=== PATIENT | female | born 1945 | race Caucasian/White ===

== ENCOUNTER 2020-09-22 10:52 | Observation (INO) ==
--- NOTE | 2020-09-09 12:56 | PAT Medication Instructions ---
Medication Instructions Date of Service September 09, 2020 Home Medications acetaminophen [Tylenol 8 Hour] 650 mg PO Q8H diphenhydramine HCl [Benadryl] 25 mg PO HS PRN diphenhydramine-acetaminophen [Tylenol PM Extra Strength] 1 tab PO HS docusate sodium [Stool Softener] 100 mg PO BID gabapentin 100 mg PO HS PRN insulin aspart U-100 [Novolog U-100 Insulin aspart] 1 sliding scale dose SUBCUT USEASDIRECTD insulin glargine [Lantus Solostar U-100 Insulin] 38 - 48 unit SUBCUT HS labetalol 100 mg PO BID lorazepam 1 - 2 mg PO BID losartan 100 mg PO QAM lovastatin 40 mg PO HS polyethylene glycol 3350 [Miralax] 17 g PO PM sertraline 50 mg PO QAM aspirin [Aspir-81] 81 mg PO QAM hydrocodone-acetaminophen 1 tab PO Q8H PRN DO NOT take the morning of surgery docusate sodium [Stool Softener] 100 mg PO BID insulin aspart U-100 [Novolog U-100 Insulin aspart] 1 sliding scale dose SUBCUT USEASDIRECTD losartan 100 mg PO QAM Take morning of surgery With a small sip of water, OTHERWISE NOTHING TO EAT OR DRINK AFTER MIDNIGHT: acetaminophen [Tylenol 8 Hour] 650 mg PO Q8H (if needed, may be taken up to four hours before surgery) labetalol 100 mg PO BID lorazepam 1 - 2 mg PO BID losartan 100 mg PO QAM sertraline 50 mg PO QAM aspirin [Aspir-81] 81 mg PO QAM (unless otherwise instructed by your surgeon) hydrocodone-acetaminophen 1 tab PO Q8H PRN (if needed, may be taken up to four hours before surgery) Take evening before surgery acetaminophen [Tylenol 8 Hour] 650 mg PO Q8H (if needed) diphenhydramine HCl [Benadryl] 25 mg PO HS PRN (if needed) diphenhydramine-acetaminophen [Tylenol PM Extra Strength] 1 tab PO HS docusate sodium [Stool Softener] 100 mg PO BID gabapentin 100 mg PO HS PRN (if needed) insulin aspart U-100 [Novolog U-100 Insulin aspart] 1 sliding scale dose SUBCUT USE DIRECTD insulin glargine [Lantus Solostar U-100 Insulin] 38 - 48 unit SUBCUT HS labetalol 100 mg PO BID lorazepam 1 - 2 mg PO BID lovastatin 40 mg PO HS polyethylene glycol 3350 [Miralax] 17 g PO PM sertraline 50 mg PO QAM aspirin [Aspir-81] 81 mg PO QAM hydrocodone-acetaminophen 1 tab PO Q8H PRN (if needed) Other Notes If you have any questions please call us at [phone] or [phone] or [phone] or [phone]
--- NOTE | 2020-09-09 13:08 | Anesthesiology Consultation ---
Date of Service September 09, 2020 Assessment & Plan (1) Encounter for pre-operative examination: COVID Status: As of 09/09 assessment, patient denies travel to endemic area, known exposure/sick contacts, or symptoms of COVID19. Patient advised to adhere to social distancing guidelines, wear a mask in public and avoid large crowds or unnecessary travel in the 2 weeks leading up to surgery. Preoperative COVID19 testing to be completed prior to surgery per surgeon's arrangements (09/18). Patient encouraged to be extra cautious/conscientious with COVID precautions between COVID testing and surgery. Patient is NOT vaccinated for COVID. Chart Review Chart Review: Acceptable Risk for Surgery (pending pcp clearance 09/15) and Patient seen in Pre Admission Testing Teaching & Discussion Instructed NPO after midnight before surgery, except medications with 15 cc of water. Medication instructions provided according to the PAT guidelines. History Surgery Operation Date: 09/22/20 12:25 Proposed Procedures p Right Total Knee Arthroplasty - Cesar Connelly DO Height/Weight Height: 5 ft 1 in Weight: 99.5 kg Allergies Allergy/AdvReac Type Severity Reaction Status Date / Time fish derived Allergy Severe TONGUE Verified 09/03/20 09:24 TINGLING honey Allergy Severe Rash and Verified 09/03/20 09:24 SOB iodine Allergy Intermediate HivesFOR Verified 09/03/20 09:24 CT SCAN Tetracyclines Allergy Intermediate Gastrointestinal Verified 09/03/20 09:24 Upset Penicillins Allergy Unknown Unknown- Verified 09/03/20 09:24 pt thinks rash erythromycin base AdvReac Intermediate Gastrointestinal Verified 09/03/20 09:24 Upset PEANUT BUTTER Allergy Severe Rash Uncoded 09/03/20 09:24 Medications Home Medications Medication Instructions Recorded Confirmed Last Taken acetaminophen [Tylenol 8 Hour] 650 mg PO Q8H 11/04/19 09/03/20 Unknown diphenhydramine HCl [Benadryl] 25 mg PO HS PRN 11/04/19 09/03/20 Unknown diphenhydramine-acetaminophen 1 tab PO HS 11/04/19 09/03/20 Unknown [Tylenol PM Extra Strength] docusate sodium [Stool Softener] 100 mg PO BID 11/04/19 09/03/20 Unknown gabapentin 100 mg PO HS PRN 11/04/19 09/03/20 Unknown insulin aspart U-100 [Novolog 1 sliding scale dose SUBCUT 11/04/19 09/03/20 Unknown U-100 Insulin aspart] USEASDIRECTD insulin glargine [Lantus Solostar 38 - 48 unit SUBCUT HS 11/04/19 09/03/20 Unknown U-100 Insulin] labetalol 100 mg PO BID 11/04/19 09/03/20 Unknown lorazepam 1 - 2 mg PO BID 11/04/19 09/03/20 Unknown losartan 100 mg PO QAM 11/04/19 09/03/20 Unknown lovastatin 40 mg PO HS 11/04/19 09/03/20 Unknown polyethylene glycol 3350 [Miralax] 17 g PO PM 11/04/19 09/03/20 Unknown sertraline 50 mg PO QAM 11/04/19 09/03/20 Unknown aspirin [Aspir-81] 81 mg PO QAM 09/03/20 09/03/20 Unknown hydrocodone-acetaminophen 1 tab PO Q8H PRN 09/03/20 09/03/20 Unknown Past Medical History Medical History Anxiety Breast cancer RIGHT SIDE> 1990, METS TO LUNGS AND HIP, HAD CHEMO AND RADIATION 1994 HAD RELAPSE TO LUNGS, CHEMO AGAIN 2002 LEFT BREAST, lumpectomy No current issues Constipation Diabetes mellitus, type 2 IDDM Fatty liver Pt states LFTs well controlled Hearing deficit Wears left sided hearing aids Hyperlipidemia Hypertension Kidney stones No current issues Osteoarthritis SOB (shortness of breath) on exertion NOT ACTIVE Temporomandibular joint disorder LEFT SIDE PAIN ON CHEWING-NO LOCKING Exercise / Class Metabolic Activity III < 4 Walking/Shop/Light housework (Has 4 steps to get into the house but otherwise ambulates with cane on flat surface, denies CP or SOB with ambulation) Past Family History Family History Uncle Family history of diabetes mellitus Grandfather (Maternal) Family history of diabetes mellitus Sister Family history of diabetes mellitus Past Surgical History Surgical History Colon polyp WITH REMOVAL H/O blepharoplasty BILAT History of bilateral tubal ligation History of biopsy LYMPH NODE NECK History of cataract surgery BILAT History of colonoscopy MULTIPLE History of left knee replacement 2010 History of tonsillectomy History of tooth extraction Hx of lumpectomy BILAT WITH LYMPH NODE REMOVAL Nausea and vomiting after administration of anesthetic agent Uterine polyp WITH REMOVAL Past Anesthesia History No Hx of Anesthesia Complications and No Family Hx of Anesthesia Complications History of PONV No Hx of Motion Sickness and History of PONV (single episode) Social History Smoking Status: Never smoker Do You Dip or Chew Tobacco: No Hx Alcohol Use: Yes Alcohol type: other alcohol intake frequency: holidays/special occasions only Hx Substance Use: No Review of Systems Pt denies any recent chest pain, shortness of breath, palpitations, cough, fever, URI, or uncontrolled acid reflux. Physical Exam Vital Signs BP: 119/74 P: 78bpm SPO2: 96% RA T: 98.5 F R: 16 ENMT Mouth: + TMJ abnormality (small ), + dentures (full upper) and + macroglossia; no loose teeth Thyromental Distance: > or= 3.5 Finger Breadths Mallampati Class: III Six teeth remain on bottom, no molars Neck + thick neck and + limited neck extension Respiratory normal respiratory effort, lungs clear to auscultation Cardiovascular RRR, no murmur, no edema Lab Results Anesthesia Preop Results Results Anesthesia Widget: WBC 5.91 K/uL (4.8-10.8) 09/09/20 Hgb 12.7 g/dL (12.0-16.0) 09/09/20 Hct 38.4 % (37-47) 09/09/20 Plt 211 K/uL (130-400) 09/09/20 Na 139 mmol/L (136-145) 09/09/20 K 4.4 mmol/L (3.5-5.1) 09/09/20 Cl 108 mmol/L (98-107) H 09/09/20 CO2 25 mmol/L (21-32) 09/09/20 BUN 19 mg/dl (7-18) H 09/09/20 Creat 1.06 mg/dl (0.6-1.2) 09/09/20 Glucose Level 100 mg/dl (70-99) H 09/09/20 PT 10.5 Seconds (9.0-12.0) 09/09/20 PTT 31.8 Seconds (21.0-31.0) H 09/09/20 INR 1.0 (0.9-1.1) 09/09/20 HA1c 7.1 % (4.5-5.6) H 09/09/20 Urine Color Yellow 09/09/20 Urine Appearance Clear (Clear) 09/09/20 Urine pH 6.0 (4.5-7.5) 09/09/20 Urine Specific [place] 1.019 (1.000-1.030) 09/09/20 Urine Protein Negative (Negative) 09/09/20 Urine Glucose (UA) Negative (Negative) 09/09/20 Urine Ketones Negative (Negative) 09/09/20 Urine Blood Negative (Negative) 09/09/20 Urine Nitrite Negative (Negative) 09/09/20 Urine Bilirubin Negative (Negative) 09/09/20 Urine Urobilinogen Negative (Negative) 09/09/20 Urine Leukocyte Esterase 1+ (Negative) H 09/09/20 Urine WBC (Auto) 5-10 /hpf (0-5) H 09/09/20 Urine RBC (Auto) 5-10 /hpf (0-4) H 09/09/20 Urine Hyaline Casts (Auto) 0 /lpf (0-5) 09/09/20 Urine Epithelial Cells (Auto) 10-20 /lpf (0-5) H 09/09/20 Urine Bacteria (Auto) Negative (Negative) 09/09/20 Blood Type O Positive 09/09/20 Antibody Screen NEGATIVE 09/09/20 Testing Electrocardiogram Date: 11/07/19 Findings: + NSR @ (94bpm) and + RBBB Chest X-Ray Date: 11/07/19 1. No active disease in the chest 2. Lytic focus within the right humeral head versus projectional artifact
--- NOTE | 2020-09-11 18:22 | History & Physical Report ---
Date of Service September 22, 2020 Assessment & Plan (1) Degenerative joint disease of knee, right: I have indicated the patient for right total knee replacement. The risks, benefits and complications of surgery were explained to the patient which include but not limited to infection, acute blood loss, DVT/PE, injury to nerves, vessels, bone, soft tissue, arthrofibrosis, chronic pain, failure of the prosthesis, knee dislocation, leg length discrepancy, need for additional surgery, cardiac and pulmonary events and . The patient wished to proceed with surgery and informed consent was obtained at this time. We will plan for 81mg ASA BID post-operatively for DVT prophylaxis. Upon discharge the patient will be discharged home with home health services. Appropriate clearances by PCP were obtained. History of Present Illness Chief Complaint: Right knee pain/DJD Primary Care Provider: NO PCP The patient is a 75 year old female who presents with complaints of severe right knee pain and DJD. The patient has failed outpatient conservative treatments to this point which included NSAIDs, bracing, corticosteroid injection and a home exercise/walking program. The patient's pain and limited function have progressed to the point where they severely hinder their activities of daily living and they no longer tolerate exercise programs. They are requesting to proceed with total knee replacement surgery. Allergies Allergy/AdvReac Type Severity Reaction Status Date / Time fish derived Allergy Severe TONGUE Verified 09/22/20 11:35 TINGLING honey Allergy Severe Rash and Verified 09/22/20 11:35 SOB iodine Allergy Intermediate HivesFOR Verified 09/22/20 11:35 CT SCAN Tetracyclines Allergy Intermediate Gastrointestinal Verified 09/22/20 11:35 Upset Penicillins Allergy Unknown Unknown- Verified 09/22/20 11:35 pt thinks rash erythromycin base AdvReac Intermediate Gastrointestinal Verified 09/22/20 11:35 Upset PEANUT BUTTER Allergy Severe Rash Uncoded 09/22/20 11:35 Home Medications Medication Instructions Recorded Confirmed Type acetaminophen [Tylenol 8 Hour] 650 mg PO Q8H 11/04/19 09/22/20 History diphenhydramine HCl [Benadryl] 25 mg PO HS PRN 11/04/19 09/22/20 History diphenhydramine-acetaminophen 1 tab PO HS 11/04/19 09/22/20 History [Tylenol PM Extra Strength] docusate sodium [Stool Softener] 100 mg PO BID 11/04/19 09/22/20 History gabapentin 100 mg PO HS PRN 11/04/19 09/22/20 History insulin aspart U-100 [Novolog 1 sliding scale dose SUBCUT 11/04/19 09/22/20 History U-100 Insulin aspart] USEASDIRECTD insulin glargine [Lantus Solostar 38 - 48 unit SUBCUT HS 11/04/19 09/22/20 History U-100 Insulin] labetalol 100 mg PO BID 11/04/19 09/22/20 History lorazepam 1 - 2 mg PO BID 11/04/19 09/22/20 History losartan 100 mg PO QAM 11/04/19 09/22/20 History lovastatin [Altoprev] 40 mg PO HS 11/04/19 09/22/20 History polyethylene glycol 3350 [Miralax] 17 g PO PM 11/04/19 09/22/20 History sertraline [Zoloft] 50 mg PO QAM 11/04/19 09/22/20 History aspirin [Aspir-81] 81 mg PO QAM 09/03/20 09/22/20 History hydrocodone-acetaminophen 1 tab PO Q8H PRN 09/03/20 09/22/20 History Past Med/Surg History Medical History Anxiety Breast cancer RIGHT SIDE> 1990, METS TO LUNGS AND HIP, HAD CHEMO AND RADIATION 1994 HAD RELAPSE TO LUNGS, CHEMO AGAIN 2002 LEFT BREAST, lumpectomy No current issues Constipation Diabetes mellitus, type 2 IDDM Fatty liver Pt states LFTs well controlled Hearing deficit Wears left sided hearing aids Hyperlipidemia Hypertension Kidney stones No current issues Morbid obesity Osteoarthritis SOB (shortness of breath) on exertion NOT ACTIVE Temporomandibular joint disorder LEFT SIDE PAIN ON CHEWING-NO LOCKING Surgical History Colon polyp WITH REMOVAL H/O blepharoplasty BILAT History of bilateral tubal ligation History of biopsy LYMPH NODE NECK History of cataract surgery BILAT History of colonoscopy MULTIPLE History of left knee replacement 2010 History of tonsillectomy History of tooth extraction Hx of lumpectomy BILAT WITH LYMPH NODE REMOVAL Nausea and vomiting after administration of anesthetic agent Uterine polyp WITH REMOVAL Family History Uncle Family history of diabetes mellitus Grandfather (Maternal) Family history of diabetes mellitus Sister Family history of diabetes mellitus Social History Smoking Status: Never smoker Second Hand Exposure: No; Do You Dip or Chew Tobacco: No; Hx Alcohol Use: Yes Alcohol type: other Hx Substance Use: No Preferred Language: Khmer Communication Ability: Effective Vp Of Product Required: No Beliefs That Will Affect Care: None Current Living Situation: Alone current occupational status: retired Other Information That Helps Us Care for You: No Feels Safe at Home: Yes Safety Concerns: Feels Safe At This Time Assistive Devices: Cane, Denture - Upper, Glasses and Hearing Aid - Left Assistive Devices Comment: VELCRO WRAP KNEE PRN Review of Systems Review of Systems: All systems reviewed & are unremarkable except as noted in HPI & below Constitutional: as per Subjective / HPI Physical Exam Physical Exam: RLE NVSI +EHL/FHL/TA/GS SILT grossly, +2 DP pulse, compartments soft NT, limited painful ROM of the knee, 30-90 degrees of flexion, +crepitus. Constitutional: WD/WN, vitals as above Eyes: PERRL, conjunctivae normal, anicteric sclerae ENMT: external ear and nose normal, oropharynx normal Neck: trachea midline, no thyromegaly Respiratory: normal respiratory effort, lungs clear to auscultation Cardiovascular: RRR, no murmur, no edema Gastrointestinal (Abdomen): normal bowel sounds, soft, nontender, no hepatosplenomegaly Musculoskeletal: no cyanosis or clubbing, extremities motor strength 5/5 Skin: no rashes, warm and dry Neurologic: patellar DTR's 2+ bilat, sensation intact Psychiatric: A+Ox3, euthymic affect Lymphatic: no cervical or axillary lymphadenopathy Results & Data Results & Data ([facility]) Diagnostic Findings Multiple views of the knee demonstrates severe tricompartmental DJD with complete loss of the medial joint space. +osteophytes, +sclerosis, +subchondral cysts.
[~2020-09-22 10:52] MED LIST: ACETAMINOPHEN 500 MG TAB PO SCH; BUPIVACAINE 0.5 % 5 MG/1 ML PF 10ML VIAL ONE; CeleBREX 200 MG CAP PO SCH; EPINEPHrine INJ 1 MG/ML AMP ONE; FAMOTIDINE 20 MG TAB PO SCH; LR 15ML/HR IV SCH; METOCLOPRAMIDE HCL 10 MG TABLET PO SCH; ROPIVACAINE 0.5% 5 MG/ML 30 ML VIAL ONE; ROPIVACAINE 0.5% HCL/PF 150 MG, BUPIVACAINE 0.75% MPF 20 ML, EPINEPHrine 30MG/30ML (OR ... INSTIL SCH; TRANEXAMIC ACID 1,000 MG **IV Intra-op IV SCH; TRANEXAMIC ACID 1,000 MG **IV Pre-op IV SCH; dexAMETHasone 4 MG TAB PO SCH
[2020-09-22] MEDS ORDERED: ORTHO JOINT ANESTHETIC ONE (13:40)
[2020-09-22] MEDS ORDERED: MIDAZOLAM HCL 1 MG/ML 2ML VIAL ONE ×2 (14:01→14:52)
[2020-09-22] MEDS ORDERED: fentaNYL citrate 100 MCG/2 ML VIAL ONE (14:01)
[2020-09-22] MEDS ORDERED: PROPOFOL IV EMULSION 10 MG/ML 20 ML VIAL IV ONE ×3 (14:03→16:04)
[2020-09-22] MEDS ORDERED: LIDOCAINE 2% 2 ML VIAL/AMP(20MG/ML) INFIL ONE (14:05)
[2020-09-22] MEDS ORDERED: ONDANSETRON INJ 2 MG/ML 2 ML VIAL ONE (14:07)
[2020-09-22] MEDS ORDERED: ceFAZolin 2000MG 2,000 MG/15 ML SYR IV ONE (14:11)
[2020-09-22] MEDS ORDERED: ceFAZolin 2,000 MG/15 ML IV PUSH IV ONE (14:13)
--- NOTE | 2020-09-22 14:21 | History & Physical Bridge Note ---
Date of Service September 22, 2020 History & Physical Bridge Note I have examined the patient, reviewed the History & Physical and in the interval since the performance of the History & Physical I have noted the following changes of clinical significance: no changes noted
[2020-09-22] MEDS ORDERED: ePHEDrine sulfate 50 MG/ML AMP IV PRN (16:12)
[2020-09-22] MEDS ORDERED: ATROPINE SULFATE 0.1 MG/ML 10ML SYR IV PRN (16:12)
--- NOTE | 2020-09-22 16:15 | Post Operative Brief Note ---
Immediate Post Op Note v1 Date of Surgery September 22, 2020 Pre & Post Diagnosis Operation Date: 09/22/20 14:00 Pre-Op Diagnosis: Osteoarthritis, Right Knee Post-Op Diagnosis: Osteoarthritis, Right Knee I identified the patient and participated in the time-out.: Yes Procedure Operation Date: 09/22/20 14:00 Actual Procedures p Right Total Knee Arthroplasty, Cemented(Right) - Cesar Connelly DO Surgeon Cesar Connelly DO Osteologist Luis A Zavala Estimated Blood Loss 55 Findings Consistent with Post-Op Diagnosis Fluids See anesthesia report Specimens Proximal tibia and distal femur bone fragments Anesthesia Type Spinal MAC Complications none Disposition Disposition: Recovery Room Overlapping Procedure I was present for: the critical portions of procedure. I was immediately available: during the entire case. Back up surgeon: was not required during procedure.
--- NOTE | 2020-09-22 16:17 | Operative Report ---
Post Operative Report Pre & Post Diagnosis Operation Date: 09/22/20 14:00 Pre-Op Diagnosis: Osteoarthritis, Right Knee Post-Op Diagnosis: Osteoarthritis, Right Knee I identified the patient and participated in the time-out.: Yes Procedure Operation Date: 09/22/20 14:00 Actual Procedures p Right Total Knee Arthroplasty, Cemented(Right) - Cesar Connelly DO Surgeon Cesar Connelly DO Line Producer Luis A Zavala Estimated Blood Loss 55 Findings Consistent with Post-Op Diagnosis Specimens Proximal tibia and distal femur bone fragments Anesthesia Type Spinal MAC Complications none Disposition Disposition: Recovery Room Indications The patient is a 75-year-old female presents with long history of severe right knee tricompartmental DJD and failed outpatient conservative treatments including NSAIDs, bracing, injections and home walking/exercise program. The patient's symptoms have progressed to the point where it has been difficult to perform normal activities of daily living. I have indicated the patient for a right total knee arthroplasty, the risks and benefits and complications of the procedure include but are not limited to infection bleeding damage to bone, nerves, vessels, surrounding soft tissue, blood clots, loss of function, leg length discrepancy, dislocation, failure of the components, need for additional surgery and . The patient wished to proceed with surgery at this time and informed consent was obtained. Appropriate clearances were obtained. Description of Procedure COMPONENTS USED: Diane persona knee system: Femur size 7 standard, Tibia size E, Tibial articulating surface 10 CPS, Patella 32 mm Following induction of spinal anesthesia, a tourniquet was applied to the proximal aspect of the thigh and the patient's right leg was prepped and draped in the usual sterile manner. A timeout was performed, patient identified and site ancelmo confirmed. Appropriate pre-operative IV antibiotics were given. The limb was exsanguinated with an Esmarch bandage and tourniquet was inflated to 300 mmHg. A longitudinal midline incision was made over the anterior knee. Subcutaneous tissue was sharply dissected down to fascia. Electrocautery was used for hemostasis. Next a parapatellar arthrotomy was performed. Patella was everted and the knee was flexed. A Hassan retractor was used to expose the synovium above on the anterior aspect of the femur and removed down to bone. Next, the anterior fat pad was removed to aid in visualization. The medial face of the tibia was cleared of soft tissue first with a Bovie and a iverson elevator. This tissue was retracted posteriorly using a blunt Hohmann. Next, the extra-medullary tibial cutting guide was placed to the anterior aspect of the tibia. The tibia resection level was set taking 2mm from the defective tibial condyle. Resection depth was once again confirmed with genesis wing. The medial and lateral collateral ligament was protected with two Hohmann retracto rs. The tibia guide was removed and proximal tibial bone fragment removed utilizing straight osteotome, electrocautery and Joe. Next, the distal femur intramedullary canal was accessed utilizing the step drill. The intramedullary distal femur cutting guide was placed into the canal and pinned into place. The distal femur was cut on the 5 degree setting. Next the cutting guide was removed and the femur was sized. Care was taken to ensure appropriate nailhead setter all rotation and 3 degree holes were drilled. A size 7 4-in-1 cutting block was placed on the distal end of the femur and secured into place with two short headed screws. Two bent Hohmann retractors were placed to protect the medial and lateral collateral ligaments. The oscillating saw was used to cut anterior, posterior, anterior chamfer and posterior chamfer. The four and one cutting block was removed and bone fragments excised. Laminar digital imager was placed laterally and the ACL and PCL were removed followed by the medial meniscus and posterior medial osteophytes. Aquamantys was utilized for any posterior medial bleeders and Orthomix injected into the posterior medial capsule. A laminar digital imager was then placed in the medial compartment and the lateral meniscus and posterior osteophytes were removed. Aquamantys was utilized for any posterior lateral bleeders and Orthomix injected into the posterior lateral capsule. Next, drop teofilo and spacer block were placed with the leg in flexion and extension to assess alignment and flexion/extension gaps. Next, the proximal tibia was assessed and two bent Hohmans were placed medial and lateral to aid in visualization. The appropriate tibia size and rotation was selected and a size E tibial plate was pinned into place with appropriate rotation. Preparation of the tibia was completed utilizing the matching tibial drill and broach. I then turned my attention back to the distal femur in a trial femoral component was impacted into place. Appropriate femoral width was assessed and selected. Next the femur PS box cut guide was placed and cut made with the reciprocal saw and the PS box provisional placed. A trial size 10 PS tibia articular tray was placed and varus-valgus balance assessed in 0 degrees of extension and 30, 60 and 90 degrees of flexion. A final tibial articular surface size 10 CPS was chosen. Assess was gained to the patella and caliper utilized to measure width. The patella reamer was utilized and remaining bone removed with oscillating saw. A size 32 mm patella button was selected and the patella pegs drilled. Trial patella button was placed and tracking was assessed. The knee was found to be well balanced, well aligned with excellent patella tracking. The trials were removed and final components were obtained and assembled. The knee was irrigated copiously with sterile saline solution mixed with bacitracin. Access to the proximal tibia was once again obtained utilizing to the Hohmans and the proximal tibia and distal femur were dried with lap sponges. The final components were cemented into place and all excess cement was removed. A trial tibial articular surface was placed while cemented hardened. Knee stability was once again assessed and the final component inserted. A Betadine soak was performed. After 3 minutes, the knee was once more irrigated with copious sterile saline solution with bacitracin. The knee was injected with the remaining Orthomix which includes a combination of Ropivicaine 0.5% 150mg, Bupivicaine 0.5%/Epinephrine 1:200,000 30ml, Toradol 30mg, Dexamethasone 4mg, Ketamine 10mg, Clonidine 100mcg and NSS 30ml solution. The capsulotomy was closed with #1 Vicryl followed by subcutaneous closure with 2-0 Vicryl suture and a 3-0 V-lock suture. Skin was closed with henri and a sterile dry dressing was applied which included meliton incisional VAC, web roll Ap wrap. Tourniquet was deflated at 91 minutes. The patient tolerated the procedure well and was taken to the PACU in stable condition. Due to the complex nature of the procedure, the entire surgery was performed with the operational assistance of Luis A Zavala PA-C. The assistant hairstylist, under direct supervision, was involved in the actual performance of all aspects of the surgical procedure including patient positioning, hemostasis, tissue retraction, instrument management and wound closure. I attest to the content of the Intraoperative Record and any orders documented therein. Any exceptions are noted below.
--- NOTE | 2020-09-22 17:36 | XRay Report ---
XR knee RT 1 or 2V routine HISTORY: 75 years-old Female Surgical Post Op right knee total joint arthroplasty COMPARISON: None TECHNIQUE: Single AP view of the right knee FINDINGS: Right knee total joint arthroplasty. Skin henri with expected postoperative soft tissue swelling an d deep tissue air. Only one image was submitted for review. IMPRESSION: Right knee total joint arthroplasty with expected postoperative changes. ACT 112: Negative or not required by law. The above report was generated using voice recognition software. It may contain grammatical, syntax o r spelling errors. Electronically signed by: Rene Henderson M.D. 09/22/2020 5:35 PM
--- NOTE | 2020-09-22 17:52 | Anesthesiology Progress Note ---
Date of Service September 22, 2020 Anesthesia Post Procedure Vital Signs Vital Signs: Temp Pulse Resp BP Pulse Ox 09/22/20 17:40 36.5 C 84 16 153/95 H 94 09/22/20 17:30 79 17 153/90 H 94 09/22/20 17:20 81 14 141/83 H 96 09/22/20 17:10 83 19 144/80 H 93 09/22/20 17:00 89 21 139/85 96 09/22/20 16:50 36.2 C L 87 16 118/73 95 09/22/20 16:44 36.2 C L 18 127/78 98 09/22/20 11:44 37.0 C 99 H 18 143/86 H 97 Transfer of Care Handoff Completed per policy Notes Mental Status: alert / awake / arousable Patient Amnestic to Procedure: Yes Nausea / Vomiting: adequately controlled Pain: adequately controlled Airway Patency, RR, SpO2: stable & adequate BP & HR: stable & adequate Hydration State: stable & adequate Anesthetic Complications: no major complications apparent
--- NOTE | 2020-09-22 17:55 | Anesthesiology Progress Note ---
Date of Service September 22, 2020 Anesthesia Post Procedure Vital Signs Vital Signs: Temp Pulse Resp BP Pulse Ox 09/22/20 17:50 36.5 C 79 18 155/91 H 96 09/22/20 17:40 36.5 C 84 16 153/95 H 94 09/22/20 17:30 79 17 153/90 H 94 09/22/20 17:20 81 14 141/83 H 96 09/22/20 17:10 83 19 144/80 H 93 09/22/20 17:00 89 21 139/85 96 09/22/20 16:50 36.2 C L 87 16 118/73 95 09/22/20 16:44 36.2 C L 18 127/78 98 09/22/20 11:44 37.0 C 99 H 18 143/86 H 97 Transfer of Care Handoff Completed per policy Notes Mental Status: alert / awake / arousable Patient Amnestic to Procedure: Yes Nausea / Vomiting: adequately controlled Pain: adequately controlled Airway Patency, RR, SpO2: stable & adequate BP & HR: stable & adequate Hydration State: stable & adequate Neuraxial Anesthesia: was administered and sensory block is resolving Anesthetic Complications: no major complications apparent
[2020-09-22] MEDS ORDERED: HYDROmorphone INJ 0.5 MG/0.5 ML SYR IV PRN (18:58)
[2020-09-22] MEDS ORDERED: ONDANSETRON INJ 2 MG/ML 2 ML VIAL IV PRN (18:58)
[2020-09-22] MEDS ORDERED: bisacodyL 10 MG SUPP PR PRN (18:58)
[2020-09-22] MEDS ORDERED: METOCLOPRAMIDE HCL INJ 5 MG/ML 2 ML VIAL IV PRN (18:58)
[2020-09-22] MEDS ORDERED: GABAPENTIN 100 MG CAP PO PRN (18:58)
[2020-09-22] MEDS ORDERED: NALOXONE HCL 0.4 MG/1 ML VIAL/CARP IV PRN (18:58)
[2020-09-22] MEDS ORDERED: diphenhydrAMINE Capsule 25 MG CAP PO PRN (18:58)
[2020-09-22] MEDS ORDERED: MAGNESIUM HYDROXIDE SUSP 30 ML UDC PO PRN (18:58)
[2020-09-22] MEDS ORDERED: SODIUM CHLORIDE 0.9% 1000ML 1,000 ML IV SCH (18:58)
[2020-09-22] MEDS: [UNRECOGNIZED DRUG - REMARK] SCH ×2 (19:03→19:04)
[2020-09-22] MEDS ORDERED: PHARMACY GLYCEMIC MGMT CONSULT PRN (19:23)
[2020-09-22] MEDS ORDERED: DEXTROSE 50% 50 ML SYRINGE IV PRN (19:30)
[2020-09-22] MEDS ORDERED: GLUCAGON FOR INJ 1 MG VIAL IM PRN (19:30)
[2020-09-22] MEDS ORDERED: GLUCOSE 10 TABS/TUBE PO PRN (19:30)
[2020-09-22] MEDS ORDERED: CARBOHYDRATES FOR HYPOGLYCEMIA PO PRN (19:30)
[2020-09-22] MEDS ORDERED: GLUCOSE 40% GEL 15 GM TUBE PO PRN (19:30)
--- NOTE | 2020-09-22 20:11 | Pharmacy Report ---
Pharmacy Glycemic Short Note 2 - Date of Service September 22, 2020 - Glycemic Short BSG Results (Last 24 hours): 09/22/20 09/22/20 09/22/20 11:25 14:21 16:47 POC Glucose 168 H 155 H 154 H OUTPATIENT ANTIDIABETIC REGIMEN: * Lantus 32 units HS, Novolog SSI * A1c 7.1% 09/09/20 ASSESSMENT: * 75 year old now s/p R TKA - POD 0. Type 2 diabetic managed on insulin at home. Scale listed for basal insulin on med rec, spoke with patient and she reports taking Lantus 32 units at HS time. Has been taking this dosing for over a month. She reports her BSGs had improved and her provider had been decreasing her basal insulin. I updated the med rec to reflect dosing. * Patient received PO dexamethasone, therefore anticipate steroid induced hyperglycemia. Plan to use novolog stress 2/3 dosing for tonight. PLAN FOR INPATIENT GLYCEMIC CONTROL: * Hold outpatient oral diabetes medications * Basal insulin * Lantus 32 units HS * Bolus insulin * NovoLog per scale ACHS or Q6hrs while NPO * Goal Range: Low 110 mg/dL - High 140 mg/dL * Correction Factor: 15 mg/dL/unit * Nutritional / Prandial insulin per carb ratio of 1 unit per 7 grams CHO consumed PLAN FOR DISCHARGE: * tbd
[2020-09-22] MEDS ORDERED: INSULIN GLARGINE SOLOSTAR 100 UNITS/ML 3 ML PEN SC SCH (21:00)
[2020-09-22] MEDS ORDERED: ATIVAN 1MG HOMEPACK PO SCH (21:00)
[2020-09-22] MEDS ORDERED: LORazepam 1 MG TAB PO SCH (21:00)
[2020-09-22] MEDS ORDERED: SENNA 8.6 MG TAB PO SCH (21:00)
[2020-09-22] MEDS ORDERED: LOVASTATIN 20 MG TAB PO SCH (21:00)
[2020-09-22] MEDS: DOCUSATE SODIUM 100 MG CAP PO SCH (21:13)
[2020-09-22] MEDS: LABETALOL HCL 100 MG TAB PO SCH (21:14)
[2020-09-22] MEDS: ACETAMINOPHEN 500 MG TAB PO SCH (21:16)
[2020-09-22] MEDS: ceFAZolin 2000MG 2,000 MG/15 ML SYR IV SCH (21:19)
--- NOTE | 2020-09-22 21:56 | Orthopedic Progress Note ---
Date of Service September 22, 2020 Assessment & Plan (1) Degenerative joint disease of knee, right: s/p Right TKA -ancef x 24 -DVT ppx: SCDs, TEDs, 81mg ASA BID -WBAT RLE -PT/OT -PO XR demonstrates a well aligned well fixed prosthesis without fracture/dislocation -am labs -DC planning Admission and Anticipated Discharge Date Admission Date: September 22, 2020 Subjective Post Operative Progress Note Patient seen sitting up in bed, comfortable, denies complaints, pain well controlled, no acute issues. Review of Systems Review of Systems: All systems reviewed & are unremarkable except as noted in HPI & below Constitutional: as per Subjective / HPI Physical Exam Physical Exam: RLE NVSI +EHL/FHL/TA/GS SILT grossly, +2 DP pulse, compartments soft NT, dressing cdi. Constitutional: WD/WN, vitals as above Results & Data ([facility]) Vital Signs (Past 12 Hours) Vital Signs Temp Pulse Resp BP Pulse Ox 09/22/20 21:45 36.6 C 89 18 149/84 H 94 09/22/20 20:45 35.7 C L 93 H 18 150/85 H 95 09/22/20 19:41 37 C 79 18 146/84 H 95 09/22/20 19:15 36.3 C L 80 18 147/89 H 95 09/22/20 18:15 82 18 154/88 H 96 09/22/20 18:00 79 16 145/87 H 96 09/22/20 17:50 36.5 C 79 18 155/91 H 96 09/22/20 17:40 36.5 C 84 16 153/95 H 94 09/22/20 17:30 79 17 153/90 H 94 09/22/20 17:20 81 14 141/83 H 96 09/22/20 17:10 83 19 144/80 H 93 09/22/20 17:00 89 21 139/85 96 09/22/20 16:50 36.2 C L 87 16 118/73 95 09/22/20 16:44 36.2 C L 18 127/78 98 09/22/20 11:44 37.0 C 99 H 18 143/86 H 97
[2020-09-22] MEDS: INSULIN ASPART 100 UNITS/ML 3 ML PEN SC SCH ×2 (22:06→22:14)
[2020-09-22] MEDS: oxyCODONE HCL IR 5 MG TAB (IMMEDIATE RELEASE) PO PRN (23:44)
[2020-09-23] MEDS ORDERED: INSULIN ASPART 100 UNITS/ML 3 ML PEN SC SCH (02:00)
[2020-09-23] MEDS: ceFAZolin 2000MG 2,000 MG/15 ML SYR IV SCH (05:57)
[2020-09-23] MEDS: ACETAMINOPHEN 500 MG TAB PO SCH ×2 (05:57→14:16)
[2020-09-23 06:34] LABS: Hematocrit (blood only) 33.7 % (37-47); Hemoglobin 10.8 g/dL (12.0-16.0); Mean Corpuscular Hemoglobin 27.1 pg (25-34); Mean Corpuscular Volume 84.5 fL (80-100); Mean Platelet Volume 9.9 fL (7.4-10.4); Platelet Count 198 K/uL (130-400); RDW Coefficient of Variation 13.9 % (11.5-14.5); RDW Standard Deviation 42.8 fL (36.4-46.3); Red Blood Count 3.99 M/uL (4.2-5.4); White Blood Count 11.12 K/uL (4.8-10.8)
[2020-09-23 07:04] LABS: BUN Creatinine Ratio 21.7 (10-20); Calcium 8.3 mg/dl (8.5-10.1); Creatinine Clr Calc Pharmacy 39.3 ml/min; Est GFR (African American) 45.1 ml/min; Est GFR (Non-African American) 38.9 ml/min; Potassium 4.3 mmol/L (3.5-5.1)
--- NOTE | 2020-09-23 07:39 | Orthopedic Progress Note ---
Date of Service September 23, 2020 Assessment & Plan (1) Degenerative joint disease of knee, right: s/p Right TKA POD#1 -ancef x 24 -DVT ppx: SCDs, TEDs, 81mg ASA BID -WBAT RLE -PT/OT -PO XR demonstrates a well aligned well fixed prosthesis without fracture/dislocation -am labs - as above, hgb 10.8 -DC planning - home with HH Admission and Anticipated Discharge Date Admission Date: September 22, 2020 Subjective Post Operative Progress Note Patient seen sitting up in bed, comfortable, denies complaints, pain well controlled, no acute issues. Denies F/C/N/V/SOB/CP. Physical Exam Physical Exam: RLE NVSI +EHL/FHL/TA/GS SILT grossly, +2 DP pulse, compartments soft NT, dressing cdi. Constitutional: WD/WN, vitals as above Eyes: PERRL, conjunctivae normal, anicteric sclerae ENMT: external ear and nose normal, oropharynx normal Neck: trachea midline, no thyromegaly Respiratory: normal respiratory effort, lungs clear to auscultation Cardiovascular: RRR, no murmur, no edema Gastrointestinal (Abdomen): normal bowel sounds, soft, nontender, no hepato splenomegaly Musculoskeletal: no cyanosis or clubbing, extremities motor strength 5/5 Skin: no rashes, warm and dry Neurologic: patellar DTR's 2+ bilat, sensation intact Psychiatric: A+Ox3, euthymic affect Lymphatic: no cervical or axillary lymphadenopathy Results & Data ([facility]) Vital Signs (Past 12 Hours) Vital Signs Temp Pulse Resp BP BP Pulse Ox 09/23/20 07:38 36.3 C L 82 18 144/81 H 96 09/23/20 02:40 37.5 C 83 18 129/74 94 09/22/20 23:00 37.3 C 93 H 18 137/81 93 09/22/20 21:45 36.6 C 89 18 149/84 H 94 09/22/20 20:45 35.7 C L 93 H 18 150/85 H 95 09/22/20 19:41 37 C 79 18 146/84 H 95 Laboratory Results 09/23/20 09/23/20 09/23/20 Range/Units 06:02 06:02 02:28 WBC 11.12 H (4.8-10.8) K/uL RBC 3.99 L (4.2-5.4) M/uL Hgb 10.8 L (12.0-16.0) g/dL Hct 33.7 L (37-47) % MCV 84.5 (80-100) fL MCH 27.1 (25-34) pg MCHC 32.0 (32-36) g/dL RDW Std Deviation 42.8 (36.4-46.3) fL RDW Coeff of Aleena 13.9 (11.5-14.5) % Plt Count 198 (130-400) K/uL MPV 9.9 (7.4-10.4) fL Sodium 139 (136-145) mmol/L Potassium 4.3 (3.5-5.1) mmol/L Chloride 112 H (98-107) mmol/L Carbon Dioxide 23 (21-32) mmol/L Anion Gap 4.0 (3-11) BUN 29 H (7-18) mg/dl Creatinine 1.34 H (0.6-1.2) mg/dl Est Cr Clr Drug Dosing 39.3 ml/min Est GFR ( Amer) 45.1 ml/min Est GFR (Non-Af Amer) 38.9 ml/min BUN/Creatinine Ratio 21.7 H (10-20) Glucose 131 H (70-99) mg/dl POC Glucose 187 H (70-99) mg/dl Calcium 8.3 L (8.5-10.1) mg/dl COVID-19 Eval Order SARS-CoV-2, RNA, NAAT (NEGATIVE) 09/22/20 09/22/20 09/22/20 Range/Units 21:45 16:47 14:21 WBC (4.8-10.8) K/uL RBC (4.2-5.4) M/uL Hgb (12.0-16.0) g/dL Hct (37-47) % MCV (80-100) fL MCH (25-34) pg MCHC (32-36) g/dL RDW Std Deviation (36.4-46.3) fL RDW Coeff of Aleena (11.5-14.5) % Plt Count (130-400) K/uL MPV (7.4-10.4) fL Sodium (136-145) mmol/L Potassium (3.5-5.1) mmol/L Chloride (98-107) mmol/L Carbon Dioxide (21-32) mmol/L Anion Gap (3-11) BUN (7-18) mg/dl Creatinine (0.6-1.2) mg/dl Est Cr Clr Drug Dosing ml/min Est GFR ( Amer) ml/min Est GFR (Non-Af Amer) ml/min BUN/Creatinine Ratio (10-20) Glucose (70-99) mg/dl POC Glucose 259 H 154 H 155 H (70-99) mg/dl Calcium (8.5-10.1) mg/dl COVID-19 Eval Order SARS-CoV-2, RNA, NAAT (NEGATIVE) 09/22/20 09/22/20 09/22/20 Range/Units 11:25 11:08 11:08 WBC (4.8-10.8) K/uL RBC (4.2-5.4) M/uL Hgb (12.0-16.0) g/dL Hct (37-47) % MCV (80-100) fL MCH (25-34) pg MCHC (32-36) g/dL RDW Std Deviation (36.4-46.3) fL RDW Coeff of Aleena (11.5-14.5) % Plt Count (130-400) K/uL MPV (7.4-10.4) fL Sodium (136-145) mmol/L Potassium (3.5-5.1) mmol/L Chloride (98-107) mmol/L Carbon Dioxide (21-32) mmol/L Anion Gap (3-11) BUN (7-18) mg/dl Creatinine (0.6-1.2) mg/dl Est Cr Clr Drug Dosing ml/min Est GFR ( Amer) ml/min Est GFR (Non-Af Amer) ml/min BUN/Creatinine Ratio (10-20) Glucose (70-99) mg/dl POC Glucose 168 H (70-99) mg/dl Calcium (8.5-10.1) mg/dl COVID-19 Eval Order Covid19 [facility]Now [facility] SARS-CoV-2, RNA, NAAT NEGATIVE (NEGATIVE)
[2020-09-23] MEDS ORDERED: LOSARTAN POTASSIUM 50 MG TAB PO SCH (09:00)
[2020-09-23] MEDS ORDERED: MULTIVITAMIN TAB PO SCH (09:00)
[2020-09-23] MEDS ORDERED: LORazepam 1 MG TAB PO SCH (09:00)
[2020-09-23] MEDS ORDERED: SERTRALINE HCL 50 MG TABLET PO SCH (09:00)
[2020-09-23] MEDS ORDERED: ASPIRIN 81 MG ECTAB PO SCH (09:00)
[2020-09-23] MEDS: LABETALOL HCL 100 MG TAB PO SCH (09:13)
[2020-09-23] MEDS: DOCUSATE SODIUM 100 MG CAP PO SCH (09:13)
[2020-09-23] MEDS: INSULIN ASPART 100 UNITS/ML 3 ML PEN SC SCH ×2 (09:16→12:55)
--- NOTE | 2020-09-23 09:41 | Pharmacy Report ---
Pharmacy Glycemic Short Note 2 - Date of Service September 23, 2020 - Glycemic Short BSG Results (Last 24 hours): 09/22/20 09/22/20 09/22/20 11:25 14:21 16:47 Glucose POC Glucose 168 H 155 H 154 H 09/22/20 09/23/20 09/23/20 21:45 02:28 06:02 Glucose 131 H POC Glucose 259 H 187 H 09/23/20 08:09 Glucose POC Glucose 133 H OUTPATIENT ANTIDIABETIC REGIMEN: * Lantus 32 units HS, Novolog SSI * A1c 7.1% 09/09/20 ASSESSMENT: 09/23 * Pt has received 44 units of insulin over the past 24hrs * 32 units of basal with Lantus * 12 units of bolus with NovoLog * BSGs [phone] mg/dl * Hyperglycemic effects of dexamethasone should be wearing off today. Will loosen CF/CR insulin * AM fasting BSG is in goal range - continue with outpatient Lantus dosing 09/22 * 75 year old now s/p R TKA - POD 0. Type 2 diabetic managed on insulin at home. Scale listed for basal insulin on med rec, spoke with patient and she reports taking Lantus 32 units at HS time. Has been taking this dosing for over a month. She reports her BSGs had improved and her provider had been decreasing her basal insulin. I updated the med rec to reflect dosing. * Patient received PO dexamethasone, therefore anticipate steroid induced hyperglycemia. Plan to use novolog stress 2/3 dosing for tonight. PLAN FOR INPATIENT GLYCEMIC CONTROL: * Hold outpatient oral diabetes medications * Basal insulin * Lantus 32 units HS * Bolus insulin * NovoLog per scale ACHS or Q6hrs while NPO * Goal Range: Low 110 mg/dL - High 140 mg/dL * Correction Factor: 25 mg/dL/unit * Nutritional / Prandial insulin per carb ratio of 1 unit per 8 grams CHO consumed PLAN FOR DISCHARGE: * A1c is in goal range for age/co-morbidities. No changes needed to outpatient regimen.
[2020-09-23] MEDS: oxyCODONE HCL IR 5 MG TAB (IMMEDIATE RELEASE) PO PRN ×2 (09:49→14:44)
--- NOTE | 2020-09-23 12:49 | Communication Note ---
Date of Service: September 23, 2020 Progressing well with PT. Pain controlled. Plan for dc to home today.
--- NOTE | 2020-09-23 23:15 | Discharge Summary ---
Date of Service September 23, 2020 Admission HPI Per Admitting Provider The patient is a 75 year old female who presents with complaints of severe right knee pain and DJD. The patient has failed outpatient conservative treatments to this point which included NSAIDs, bracing, corticosteroid injection and a home exercise/walking program. The patient's pain and limited function have progressed to the point where they severely hinder their activities of daily living and they no longer tolerate exercise programs. They are requesting to proceed with total knee replacement surgery. Principal Diagnosis Right total knee replacement Discharge Exam RLE NVSI +EHL/FHL/TA/GS SILT grossly, +2 DP pulse, compartments soft NT, dressing cdi. Constitutional WD/WN, vitals as above Discharge Data Allergies Allergy/AdvReac Type Severity Reaction Status Date / Time fish derived Allergy Severe TONGUE Verified 09/22/20 11:35 TINGLING honey Allergy Severe Rash and Verified 09/22/20 11:35 SOB iodine Allergy Intermediate HivesFOR Verified 09/22/20 11:35 CT SCAN Tetracyclines Allergy Intermediate Gastrointestinal Verified 09/22/20 11:35 Upset Penicillins Allergy Unknown Unknown- Verified 09/22/20 11:35 pt thinks rash erythromycin base AdvReac Intermediate Gastrointestinal Verified 09/22/20 11:35 Upset PEANUT BUTTER Allergy Severe Rash Uncoded 09/22/20 11:35 Procedures Performed Operation Date: 09/22/20 14:00 Actual Procedures p Right Total Knee Arthroplasty, Cemented(Right) - Cesar Connelly DO Ordered Studies 09/22/20 05:00 US - OR guided needle placemen Routine Hospital Course (1) Degenerative joint disease of knee, right: The patient is a 75 -year-old female who presents with long standing history of severe right knee DJD and failed outpatient conservative treatments. The patient's symptoms have progressed to the point where it has been difficult to perform even normal activities of daily living. I indicated the patient for a right total knee arthroplasty, the risks, benefits and complications of the procedure include but not limited to infection, bleeding, damage to bone, nerves, vessels, surrounding soft tissue, may develop blood clots, loss of function, leg length discrepancy, dislocation, failure of the components, loosening of the components, the need for additional surgery and . The patient wished to proceed with surgery at this time and informed consent was obtained. Hospital Course: On 09/22/20 the patient was taken to the operating room, adequate anesthesia administered and underwent a right total knee arthroplasty. The patient tolerated the procedure well and was taken to the PACU in stable condition. Post-operatively the patient was started on a DVT ppx medication and given appropriate IV antibiotics. Consults were placed to physical therapy, occupational therapy and case management. On POD#1, the patient did well overnight and their pain was well controlled. Labs were drawn and the Hgb was 10.8. The patient progressed well with PT. Dressings were changed at this time and the incision was clean, dry and intact. The patients hospital stay was relatively uneventful and they were deemed stable by the orthopedic team and consultants to be discharged home with HH on 09/23/20. Discharge Instructions: Upon discharge the patient may weight bear as tolerates through their operative extremity. They were instructed to keep the incision clean and dry at all times. The patient may shower but should not submerge the incision, avoid bathing, pools and hot tubs. The patient was given a script for pain medication and should take as instructed. The patient was given a script for DVT ppx 81mg ASA BID and should take as directed. The patient was instructed to not drive or travel for long distances until cleared to do so. If the patient develops any symptoms of fevers, chills, nausea, vomiting, increased redness, swelling, pain or drainage from the surgical site, they should notify the office and/or proceed to the nearest emergency room. The patient should follow up in 10-14 days after surgery for their routine post-operative follow-up appointment and should call the office, to confirm the date and time. s/p Right TKA POD#1 -ancef x 24 -DVT ppx: SCDs, TEDs, 81mg ASA BID -WBAT RLE -PT/OT -PO XR demonstrates a well aligned well fixed prosthesis without fracture/dislocation -am labs - as above, hgb 10.8 -DC planning - home with Total Time Total Time Spent Total Time Spent (In Minutes): 30 Discharge Plan Discharge Items Patient Disposition: Home - Home Health Services Reason For Visit: Osteoarthritis, Right Knee Discharge Diagnosis: Right total knee replacement Condition on Discharge: Good Activity: Per Instructions section Lifting: Wait until after follow-up appointment Bathing: Keep incision dry Bathing Comment: No bathing, pools or hot tubs. Sexual Activity: Wait until after follow-up appointment Exercise/Sports: Wait until after follow-up appointment Driving/Machine Use: No driving. Weightbearing: Full weightbearing Non-emergency contact: Primary Care Provider and Surgeon Call non-emergency contact if: you have any medication questions, your symptoms worsen, your pain is not controlled, your pain is worsening, your pain is unusual for you, your pain is concerning for you, you have a fever, your temperature is above 101.5, your wound has increased redness, your wound has increased drainage and your wound pain has increased Follow-up/Referrals: Maribel Romero D.O. [Primary Care Provider] - Diet: Carb Consistent or DM2 Addtl Attending Provider Instructions: ACTIVITY RECOMMENDATIONS: SELF CARE INSTRUCTIONS AFTER TOTAL KNEE REPLACEMENT A. You may need to continue a physical therapy program after discharge from the hospital. There are several options available to you. Your doctor will assist you in selecting the best one for you. 1. An out-patient facility 2 to 3 times a week for therapy or home therapy. 2. Continue working on all exercises taught to you in the hospital. Your goals should be to increase bending of your knee to 90 degrees and beyond and to fully straighten your knee. B. You may progress at your own pace from walking with a walker or crutches to a cane; then to no assistive devices. C. Make walking a part of your daily routine. Be up as much as comfortable with rest periods throughout the day. Rest with leg elevation is very important. Use the ice wrap frequently for the first 3-4 weeks. D. There are no restrictions on activities. You may ride in a car, shop, participate in cloud services architect and all social activities. E. Wear the long elastic stockings (QUANG hose) 20 hours a day for 2 weeks after surgery. They can be removed several times a day for laundering and for a bath. F. You may shower, no tub baths until cleared by your doctor. SPECIAL CARE INSTRUCTIONS: VERY IMPORTANT TO READ AND REVIEW A. There are a few signs you need to watch for after you are home. Call [facility] if you notice any of the followin. Increased severe knee pain. Some pain is expected especially when you exercise. 2. Increased swelling in your leg or knee; pain or swelling of the calf muscle in either lower leg. 3. Any fluid drainage from the incision. 4. Shortness of breath or chest pain. B. Please call [facility] at if you have any concerns or questions about your operation or recovery. The doctor or his nurse will return your call promptly. C. You must take antibiotics before dental work, bladder, bowel or other surgery. Your doctor will provide you with a permanent care to carry describing this precaution. IMPORTANT: * REMEMBER TO TAKE ASPIRIN, 81 MG, TWICE DAILY FOR 4 WEEKS UNLESS OTHERWISE DIRECTED. THIS IS YOUR BLOOD THINNER. * HIGH RISK PATIENTS MAY BE PRESCRIBED A STRONGER BLOOD THINNER. THIS WILL BE PROVIDED AT DISCHARGE. * CALL IF INCREASED PAIN, REDNESS, DRAINAGE OR FEVER GREATER THAT 101. * WEAR QUANG HOSE 20 HOURS PER DAY FOR 2 WEEKS. *CLAUDIA incisional vac is a special dressing covering your incision. This dressi ng provides a sterile dry environment while you are healing. The dressing is to be left in place for 7 days post-operatively. Your home nurse or surgeon will remove. If you develop any redness or blisters or have any questions notify your surgeon immediately. FOLLOW UP VISIT: If appointment is not already scheduled: Please call [facility] to make a follow-up appointment for 2 weeks after your surgery at . Pending Studies at Discharge: No Stand-Alone Forms: My [facility], Opioid Pain Management, Smoking Cessation Medications and DC Order Prescriptions: New acetaminophen 500 mg Tablet 1,000 mg PO Q8 PRN (Reason: fever or pain) Qty: 90 RF: 0 aspirin 81 mg Tablet,Delayed Release (Dr/Ec) 81 mg PO BID Qty: 56 RF: 0 oxycodone 5 mg Tablet 5 mg PO Q6H MDD 4 PRN (Reason: pain) Qty: 30 RF: 0 sennosides [Senokot] 8.6 mg Tablet 17.2 mg PO HS PRN (Reason: constipation) Qty: 30 RF: 0 Continued insulin aspart U-100 [Novolog U-100 Insulin aspart] 100 unit/mL Solution 1 sliding scale dose SUBCUT USEASDIRECTD RF: 0 diphenhydramine HCl [Benadryl] 25 mg Capsule 25 mg PO HS PRN (Reason: Allergy Symptoms) RF: 0 docusate sodium [Stool Softener] 100 mg Capsule 100 mg PO BID RF: 0 sertraline [Zoloft] 25 mg Tablet 50 mg PO QAM RF: 0 gabapentin 100 mg Capsule 100 mg PO HS PRN (Reason: Pain) RF: 0 lorazepam 1 mg Tablet 1 - 2 mg PO BID RF: 0 polyethylene glycol 3350 [Miralax] 17 gram/dose Powder 17 g PO PM RF: 0 labetalol 100 mg Tablet 100 mg PO BID RF: 0 diphenhydramine-acetaminophen [Tylenol PM Extra Strength] 25-500 mg Tablet 1 tab PO HS RF: 0 losartan 100 mg Tablet 100 mg PO QAM RF: 0 Altoprev 40 mg Tablet Extended Release 24 Hr 40 mg PO HS RF: 0 Lantus Solostar U-100 Insulin 100 unit/mL (3 mL) Insulin Pen 32 unit SUBCUT HS RF: 0 Discontinued acetaminophen [Tylenol 8 Hour] 650 mg Tablet Extended Release 650 mg PO Q8H RF: 0 hydrocodone-acetaminophen 5-325 mg Tablet 1 tab PO Q8H PRN (Reason: Pain) RF: 0 aspirin [Aspir-81] 81 mg Tablet,Delayed Release (Dr/Ec) 81 mg PO QAM RF: 0 Discharge Orders: Discharge Order (Routine); Ordered 09/23/20 Ordered By: Luis A Maharaj/Other Patient Handouts: DVT Post Op Prevention, Total Knee Replacement, Knee Replacement Total Dc Admission Data Admit Date/Time: 09/22/20 16:46 Attending Provider: Cesar Connelly Admit Provider: Cesar Connelly Primary Care Provider: Maribel Romero Other Interventions: Discharge Summary Assessment (RN) Last Done: 09/23/20 13:18
== END 2020-09-23 16:12 | disposition home health service (06) ==
LOC: 3N 10:52 → ASU 10:52